=== PATIENT | female | born 1945 | race Caucasian/White ===

== ENCOUNTER 2020-11-14 22:27 | Inpatient (IN) | payer MEDICARE, OTHER ==
[2020-11-15] MEDS ORDERED: Propofol 1,000 MG/100 ML VIAL IV ONE (00:19)
[2020-11-15] MEDS ORDERED: Acetaminophen 325 MG TAB PO PRN (00:47)
[2020-11-15] MEDS ORDERED: Senokot S 8.6-50 MG TAB PER TUBE PRN (00:47)
[2020-11-15 00:51] VITALS: BMI 29.7
[2020-11-15] MEDS ORDERED: Furosemide 40 MG/4 ML VIAL SLOW IVP SCH ×3 (01:00→08:00)
[2020-11-15] MEDS ORDERED: Ventilator Sedation Protocol FS SCH (01:00)
[2020-11-15] MEDS ORDERED: Propofol 1,000 MG/100 ML VIAL IV PRN (01:15)
[2020-11-15] MEDS ORDERED: Morphine 2 MG/ML VIAL SLOW IVP PRN (01:15)
[2020-11-15] MEDS ORDERED: Fentanyl CADD 100 ML IV SCH (01:15)
[2020-11-15] MEDS ORDERED: Fentanyl BOLUS 250 ML IVPB PRN (01:15)
[2020-11-15] MEDS ORDERED: Lorazepam 2 MG/ML VIAL SLOW IVP PRN (01:15)
[2020-11-15] MEDS ORDERED: Propofol BOLUS 1,000 MG/100 ML VIAL IV PRN (01:15)
[2020-11-15] MEDS ORDERED: DISCONTINUE PREVIOUS NARCOTIC PAIN MEDICATIONS AND BENZODIAZEPINES FS SCH (01:15)
[2020-11-15 02:35] LABS: Troponin I 0.137 ng/mL (< 0.028)
[2020-11-15 07:40] LABS: Actual Bicarbonate (HCO3a) 24.1 mEq/L (22-28); Base Excess (BEa) 2.4 mEq/L (-2.0 to +3.0); CO2 Tension 29.4 mmHg (35.0-45.0); Calcium, Ionized (arterial) 1.05 mmol/L (1.12-1.30); Carboxyhemoglobin (COHb) 0.7 gm% (0.0-3.0); Hemoglobin (Hb) 13.6 g/dL (12.0-16.0); Potassium - ABG Lab 3.23 mmol/L (3.70-5.30); pH, Arterial 7.53 (7.35-7.45)
[2020-11-15 07:41] LABS: O2 Tension (PaO2), arterial 51.1 mmHg (> 70.0); Puncture Site LRA
[2020-11-15 08:17] LABS: Troponin I 0.136 ng/mL (< 0.028)
[2020-11-15 08:26] LABS: #Lymphocytes 0.7 thou/uL (1.20-3.40); #Monocytes 0.3 thou/uL (0.11-0.59); #Neutrophils 9.1 thou/uL (1.40-6.50); %Basophils 0.1 % (0.0-1.0); %Eosinophils 0.2 % (0.0-10.0); %Lymphocytes 6.7 % (21.0-51.0); %Monocytes 3.3 % (0.0-10.0); %Neutrophils 89.7 % (42.0-75.0); Mean Corpuscular HGB CONC 34.1 g/dL (32.0-36.0); Mean Corpuscular Hemoglobin 34.9 pg (27.0-31.0); Mean Platelet Volume 7.6 fL (7.4-10.4); Platelet Count 150 thou/uL (130-400); RBC Distribution Width 12.3 % (11.5-14.5); Red Blood Cell (RBC) Count 3.72 mill/uL (4.20-5.40); White Blood Cell (WBC) Count 10.1 thou/uL (4.8-10.8)
[2020-11-15] MEDS ORDERED: Levothyroxine Sodium 88 MCG TAB PO SCH (08:30)
[2020-11-15] MEDS ORDERED: DC Sedation Protocol FS ONE (08:42)
[2020-11-15 08:45] LABS: ALT (SGPT) 40 U/L (8-55); AST (SGOT) 38 U/L (5-34); Albumin 3.8 g/dL (3.4-4.8); Alkaline Phosphatase 107 U/L (40-110); Anion Gap 18 mmol/L (10-20); BUN (Urea Nitrogen) 14 mg/dL (9.8-20.1); Bilirubin, Total 0.7 mg/dL (0.2-1.2); Calc. Creatinine Clearance 74 mL/min (70-130); Calcium 8.5 mg/dL (7.8-10.44); Carbon Dioxide 21 mmol/L (23-31); Chloride 102 mmol/L (98-107); Globulin 2.8 g/dL (2.4-3.5); Glucose 142 mg/dL (83-110); Potassium 3.4 mmol/L (3.5-5.1); Protein, Total 6.6 g/dL (5.8-8.1); Sodium 138 mmol/L (136-145)
[2020-11-15] MEDS ORDERED: Famotidine/PF 20 mg/2ml Vial SLOW IVP SCH (09:00)
[2020-11-15] MEDS ORDERED: Cepastat Lozenges 1 LOZ PO PRN (09:20)
[2020-11-15] MEDS ORDERED: Potassium Bicarbonate/Cit Ac 20 MEQ TAB PO SCH (10:00)
[2020-11-15] MEDS: Aspirin 325 mg Enteric Coated Tablet PO SCH ×2 (10:00→10:16)
[2020-11-15] MEDS: Lisinopril 2.5 MG TAB PO SCH (10:16)
[2020-11-15] MEDS: Amiodarone 200 MG TAB PO SCH (10:16)
[2020-11-15] MEDS: Enoxaparin Sodium 40 MG/0.4 ML SYRINGE SC SCH (10:17)
[2020-11-15] MEDS: Carvedilol 3.125 MG TAB PO SCH ×2 (10:17→20:50)
[2020-11-15] MEDS ORDERED: Polyethylene Glycol 3350 17 GM Packet PO PRN (11:11)
[2020-11-15] MEDS: methylPREDNISolone Sod Succ 40 MG VIAL IVP SCH ×2 (13:27→18:19)
[2020-11-15] MEDS ORDERED: Iopamidol-370 76% 500 ML 1 ML ONE (14:38)
[2020-11-15] MEDS: Mirtazapine 30 MG TAB PO SCH (20:48)
[2020-11-16] MEDS: methylPREDNISolone Sod Succ 40 MG VIAL IVP SCH ×2 (00:33→05:16)
[2020-11-16 03:54] LABS: #Lymphocytes 0.5 thou/uL (1.20-3.40); #Monocytes 0.3 thou/uL (0.11-0.59); #Neutrophils 11.4 thou/uL (1.40-6.50); %Basophils 0.1 % (0.0-1.0); %Eosinophils 0.1 % (0.0-10.0); %Monocytes 2.2 % (0.0-10.0); %Neutrophils 93.7 % (42.0-75.0); Hemoglobin 12.4 g/dL (12.0-16.0); Mean Corpuscular HGB CONC 33.9 g/dL (32.0-36.0); Mean Corpuscular Hemoglobin 34.8 pg (27.0-31.0); Mean Platelet Volume 7.9 fL (7.4-10.4); Platelet Count 150 thou/uL (130-400); RBC Distribution Width 12.6 % (11.5-14.5); Red Blood Cell (RBC) Count 3.58 mill/uL (4.20-5.40); White Blood Cell (WBC) Count 12.1 thou/uL (4.8-10.8)
[2020-11-16 04:09] LABS: Band 3 % (5-11); Hemoglobin 12.3 g/dL (12.0-16.0); Lymphocytes 11 % (21-51); MDiff Complete? YES; Macrocytosis SLIGHT = 6-15 cells (100X) (0-5/hpf); Mean Corpuscular HGB CONC 32.9 g/dL (32.0-36.0); Mean Corpuscular Hemoglobin 33.8 pg (27.0-31.0); Mean Platelet Volume 7.9 fL (7.4-10.4); Neutrophil 86 % (42-75); Platelet Count 153 thou/uL (130-400); Platelet Morphology Comment Appears Adequate; RBC Distribution Width 12.6 % (11.5-14.5); Red Blood Cell (RBC) Count 3.64 mill/uL (4.20-5.40); White Blood Cell (WBC) Count 11.9 thou/uL (4.8-10.8)
[2020-11-16 04:21] LABS: ALT (SGPT) 27 U/L (8-55); AST (SGOT) 24 U/L (5-34); Albumin 3.6 g/dL (3.4-4.8); Alkaline Phosphatase 89 U/L (40-110); Anion Gap 16 mmol/L (10-20); BUN (Urea Nitrogen) 21 mg/dL (9.8-20.1); Bilirubin, Total 0.7 mg/dL (0.2-1.2); Calc. Creatinine Clearance 67 mL/min (70-130); Calcium 8.3 mg/dL (7.8-10.44); Carbon Dioxide 23 mmol/L (23-31); Chloride 104 mmol/L (98-107); Globulin 2.8 g/dL (2.4-3.5); Glucose 169 mg/dL (83-110); Potassium 3.8 mmol/L (3.5-5.1); Protein, Total 6.4 g/dL (5.8-8.1); Sodium 139 mmol/L (136-145)
[2020-11-16] MEDS: Levothyroxine Sodium 88 MCG TAB PO SCH (05:16)
[2020-11-16] MEDS ORDERED: Aspirin 325 mg Enteric Coated Tablet PO SCH ×2 (09:00→16:00)
[2020-11-16] MEDS: HYDROcodone/Acetaminophen 10/325 mg Tablet PO PRN (09:18)
[2020-11-16] MEDS: Enoxaparin Sodium 40 MG/0.4 ML SYRINGE SC SCH (09:19)
[2020-11-16] MEDS: Atorvastatin Calcium 40 MG TAB PO SCH (09:19)
[2020-11-16] MEDS: Amiodarone 200 MG TAB PO SCH (09:20)
[2020-11-16] MEDS: Carvedilol 3.125 MG TAB PO SCH ×2 (09:20→20:40)
[2020-11-16] MEDS: Lisinopril 2.5 MG TAB PO SCH (09:20)
[2020-11-16] MEDS ORDERED: Spironolactone 25 MG TAB PO SCH (11:15)
[2020-11-16] MEDS ORDERED: Furosemide 20 MG TAB PO SCH (11:15)
[2020-11-16] MEDS: Mirtazapine 30 MG TAB PO SCH (20:40)
[2020-11-17 04:55] LABS: Hemoglobin 11.7 g/dL (12.0-16.0); Lymphocytes 12 % (21-51); MDiff Complete? YES; Mean Corpuscular HGB CONC 32.3 g/dL (32.0-36.0); Mean Corpuscular Hemoglobin 33.4 pg (27.0-31.0); Mean Platelet Volume 7.7 fL (7.4-10.4); Monocytes 2 % (0-10); Neutrophil 86 % (42-75); Platelet Count 149 thou/uL (130-400); Platelet Morphology Comment Appears Decreased; RBC Distribution Width 12.5 % (11.5-14.5); Red Blood Cell (RBC) Count 3.51 mill/uL (4.20-5.40); White Blood Cell (WBC) Count 11.7 thou/uL (4.8-10.8)
[2020-11-17 05:03] LABS: ALT (SGPT) 21 U/L (8-55); AST (SGOT) 14 U/L (5-34); Albumin 3.5 g/dL (3.4-4.8); Alkaline Phosphatase 80 U/L (40-110); Anion Gap 13 mmol/L (10-20); BUN (Urea Nitrogen) 29 mg/dL (9.8-20.1); Bilirubin, Total 0.7 mg/dL (0.2-1.2); Calc. Creatinine Clearance 70 mL/min (70-130); Calcium 7.9 mg/dL (7.8-10.44); Carbon Dioxide 28 mmol/L (23-31); Chloride 104 mmol/L (98-107); Globulin 2.4 g/dL (2.4-3.5); Glucose 122 mg/dL (83-110); Potassium 3.2 mmol/L (3.5-5.1); Protein, Total 5.9 g/dL (5.8-8.1); Sodium 142 mmol/L (136-145)
[2020-11-17] MEDS: Levothyroxine Sodium 88 MCG TAB PO SCH (05:08)
[2020-11-17] MEDS ORDERED: Furosemide 40 MG TAB PO SCH (07:30)
[2020-11-17] MEDS ORDERED: Spironolactone 25 MG TAB PO SCH (08:00)
[2020-11-17] MEDS ORDERED: predniSONE 20 MG TAB PO SCH (08:00)
[2020-11-17] MEDS: HYDROcodone/Acetaminophen 10/325 mg Tablet PO PRN (08:53)
[2020-11-17] MEDS: Carvedilol 3.125 MG TAB PO SCH (08:54)
[2020-11-17] MEDS: Lisinopril 2.5 MG TAB PO SCH (08:54)
[2020-11-17] MEDS: Amiodarone 200 MG TAB PO SCH (08:55)
[2020-11-17] MEDS: Atorvastatin Calcium 40 MG TAB PO SCH (08:55)
[2020-11-17] MEDS: Enoxaparin Sodium 40 MG/0.4 ML SYRINGE SC SCH (08:56)
[2020-11-17] MEDS ORDERED: Potassium Chloride 20 MEQ TAB PO SCH (09:00)
[2020-11-17 09:02] LABS: Bilirubin Negative (Negative); Blood, Urine Negative (Negative); Clarity Turbid (Clear); Glucose, Urine (Dipstick) Normal (Negative); Ketone, Urine Negative (Negative); Leukocyte 500 Leu/uL (Negative); Nitrite 1+ (Negative); Protein, Urine (Dipstick) 10 mg/dL (Neg-Trace); RBC/HPF 0-3 HPF (0-3); Squamous Epithelial 0-3 HPF (0-3); Urobilinogen Normal mg/dL (Less than 2); pH, Urine 8.5 (5.0-9.0)
[2020-11-17 09:15] LABS: Bacteria/HPF 3+ HPF (None Seen); Triple Phosphate Crystal 2+ HPF (None Seen)
[2020-11-17 09:17] LABS: Urine Culture Reflex Yes Yes
[2020-11-17] MEDS ORDERED: cefTRIAXone\\ROCEPHIN 1 GM in Sodium Chloride 0.9% 100 ML IVPB SCH (10:15)
[2020-11-17 13:17] VITALS: BP 98/60; TEMP 98.7
== END 2020-11-17 13:34 | disposition home or self-care (01) | DRG 208 ==
LOC: CCU 11-15 00:18 → 2NO 11-16 18:41
PROVIDERS: ADMIT Family Medicine; ATTEND Family Medicine
PROC: 5A1935Z Respiratory Ventilation, Less than 24 Consecutive Hours (ICD-10-PCS; principal; 2020-11-15)
PROC: 0BH17EZ Insertion of Endotracheal Airway into Trachea, Via Natural or Artificial Opening (ICD-10-PCS; 2020-11-15)
DX: J96.01 Acute respiratory failure with hypoxia (principal); J81.0 Acute pulmonary edema; I47.2 Ventricular tachycardia; J90 Pleural effusion, not elsewhere classified; E03.9 Hypothyroidism, unspecified; I25.10 Atherosclerotic heart disease of native coronary artery without angina pectoris; I25.5 Ischemic cardiomyopathy; E78.5 Hyperlipidemia, unspecified; G89.4 Chronic pain syndrome; F41.9 Anxiety disorder, unspecified; I08.1 Rheumatic disorders of both mitral and tricuspid valves; I70.0 Atherosclerosis of aorta; R79.1 Abnormal coagulation profile; R77.8 Other specified abnormalities of plasma proteins; I10 Essential (primary) hypertension; J44.9 Chronic obstructive pulmonary disease, unspecified; F32.9 Major depressive disorder, single episode, unspecified; Z96.653 Presence of artificial knee joint, bilateral; Z95.5 Presence of coronary angioplasty implant and graft; Z88.8 Allergy status to other drugs, medicaments and biological substances; Z79.82 Long term (current) use of aspirin; Z90.49 Acquired absence of other specified parts of digestive tract; Z95.1 Presence of aortocoronary bypass graft; Z90.710 Acquired absence of both cervix and uterus; Z90.89 Acquired absence of other organs; Z95.810 Presence of automatic (implantable) cardiac defibrillator; Z87.891 Personal history of nicotine dependence
CPT/HCPCS: 0240U; 36415; 36600; 51702; 71045; 71275; 80053; 81001; 81003; 81015; 82550; 82553; 82805; 83605; 83735; 83880; 84145; 84484; 85007; 85025; 85027; 85379; 85610; 85730; 87040; 87077; 87086; 87186; 93005; 93010; 93306; 94002; 94003; 94640; 94760; 96374; 96376; 99292; J0696; J1650; J1940; J2704; J2920; J3010; J3490; J7512; J7620; Q9967